=== PATIENT | male | born 1955 | race Caucasian/White ===

== ENCOUNTER 2020-09-16 10:43 | Inpatient (IN) | payer BC ==
[2020-09-16 11:19] LABS: VENOUS BASE EXCESS 1.7 mmol/L (-2-2); VENOUS O2 SATURATION 51.4 % (70-80); VENOUS PCO2 35.4 mmHg (38-52); VENOUS PH 7.466 (7.310-7.410)
[2020-09-16] MEDS ORDERED: DEXAMETHASONE SOD PHOSPHATE 10 MG/1 ML VIAL IVPUSH ONE (11:25)
[2020-09-16 11:40] VITALS: BMI 34.8
[2020-09-16 11:45] LABS: HEMATOCRIT 45.3 % (35.4-49); HEMOGLOBIN 15.3 GM/dL (11.7-16.9); LYMPH % 5.9 % (8-40); MCH 30.2 pg (25.7-33.7); MCHC 33.7 g/dl (32.0-35.9); MEAN CELL VOLUME 89.8 fl (80-96); MONO % 4.3 % (3.8-10.2); NEUT % 89.8 % (42.8-82.8); PLATELET COUNT 187 K/MM3 (134-434); RBC 5.04 M/mm3 (4.00-5.60); RDW 13.5 % (11.9-15.9); WHITE BLOOD COUNT 11.3 K/mm3 (4.0-10.0)
[2020-09-16 11:52] LABS: INR 1.31 (0.83-1.09)
[2020-09-16 12:00] LABS: ACTIVATED PTT 31.9 SECONDS (25.2-36.5)
[2020-09-16 12:02] LABS: CHLORIDE 101 mmol/L (98-107); POTASSIUM 3.3 mmol/L (3.5-5.1); SODIUM 135 mmol/L (136-145)
[2020-09-16 12:04] LABS: BLOOD UREA NITROGEN 19.8 mg/dL (7-18)
[2020-09-16 12:05] LABS: ALBUMIN 3.2 g/dl (3.4-5.0); ANION GAP 5 MMOL/L (8-16); CALCIUM 8.2 mg/dL (8.5-10.1); CO2 29 mmol/L (21-32); GLUCOSE,RANDOM 178 mg/dL (74-106)
[2020-09-16 12:08] LABS: BILIRUBIN,DIRECT 0.3 mg/dL (0.0-0.2); CREATININE 1.1 mg/dL (0.55-1.3); SGPT/ALT 46 U/L (13-61)
[2020-09-16 12:09] LABS: SGOT/AST 56 U/L (15-37)
[2020-09-16 12:10] LABS: BILIRUBIN,TOTAL 0.8 mg/dL (0.2-1)
[2020-09-16 12:11] LABS: ALK PHOS 56 U/L (45-117); LDH 551 U/L (87-246)
[2020-09-16] MEDS ORDERED: SODIUM CHLORIDE 0.9% 500 ML INFUS.BAG IV ONE (12:21)
[2020-09-16] MEDS ORDERED: guaiFENesin/D-M SUGAR-FREE/ACLHOL-FREE 118 ML BOTTLE PO ONE (12:32)
[2020-09-16 12:49] LABS: N-TERMINAL BNP 1102.7 pg/ml (5-125)
[2020-09-16] MEDS ORDERED: KCL 10 MEQ IVPB 30 MEQ/300 ML INFUS.BAG IVPB ONE (13:13)
[2020-09-16] MEDS: KCL 10 MEQ IVPB 10 MEQ/100 ML INFUS.BAG IVPB SCH ×3 (13:30→16:30)
[2020-09-16] MEDS ORDERED: APIXABAN 2.5 MG TABLET ONE (15:00)
[2020-09-16] MEDS ORDERED: TICAGRELOR 60 MG TABLET PO ONE (15:00)
[2020-09-16] MEDS ORDERED: TICAGRELOR 60 MG TABLET PO SCH (15:00)
[2020-09-16] MEDS ORDERED: CEFTRIAXONE 1 GM in DEXTROSE 5%-WATER - 50 ML IVPB ONE (15:14)
[2020-09-16] MEDS ORDERED: ALBUTEROL SO4 HFA INHALER IH PRN (15:16)
[2020-09-16] MEDS: APIXABAN 2.5 MG TABLET PO SCH ×2 (15:30→22:20)
[2020-09-16] MEDS ORDERED: REMDESIVIR 200 MG in SODIUM CHLORIDE 210 ML IVPB ONE (15:57)
[2020-09-16] MEDS ORDERED: CEFTRIAXONE 1 GM/50 ML BAG ONE (17:11)
[2020-09-16 17:31] LABS: EPI CELLS 4 /uL (0-25.1); HYALINE CASTS 0 /uL (0-3.1); PH,URINE 6.5 (5.0-8.0); URINE APPEARANCE CLEAR; URINE BACTERIA 119 /uL (0-1359); URINE BILIRUBIN NEGATIVE (NEGATIVE); URINE COLOR YELLOW; URINE GLUCOSE (UA) TRACE (NEGATIVE); URINE KETONE NEGATIVE (NEGATIVE); URINE LEUK ESTERASE NEGATIVE (NEGATIVE); URINE NITRITE NEGATIVE (NEGATIVE); URINE PROTEIN 1+ (NEGATIVE); URINE RBC 17 /uL (0-23.9); URINE UROBILINOGEN 0.2 mg/dL (0.2-1.0); URINE WBC 5 /uL (0-25.8)
[2020-09-16] MEDS: guaiFENesin/D-M SUGAR-FREE/ACLHOL-FREE 118 ML BOTTLE PO PRN (22:13)
[2020-09-16] MEDS: METOPROLOL TARTRATE 50 MG TABLET (FP) PO SCH (22:20)
[2020-09-16] MEDS: ATORVASTATIN CA 40 MG TABLET (FP) PO SCH (22:20)
[2020-09-16] MEDS: TICAGRELOR 60 MG TABLET PO SCH (22:20)
[2020-09-16] MEDS: DOXYCYCLINE INJECTION 100 MG in DEXTROSE 5%-WATER - 100 ML IVPB SCH (22:36)
[2020-09-16] MEDS: SACUBITRIL/VALSARTAN 49 MG-51 MG TABLET PO SCH (22:45)
[2020-09-17] MEDS: SACUBITRIL/VALSARTAN 49 MG-51 MG TABLET PO SCH ×3 (01:08→21:27)
[2020-09-17] MEDS ORDERED: SODIUM CHLORIDE 1,000 ML IV SCH (05:00)
[2020-09-17] MEDS: guaiFENesin/D-M SUGAR-FREE/ACLHOL-FREE 118 ML BOTTLE PO PRN ×2 (07:13→21:26)
[2020-09-17 08:20] LABS: POTASSIUM 3.2 mmol/L (3.5-5.1)
[2020-09-17 08:27] LABS: CALCIUM 7.1 mg/dL (8.5-10.1)
[2020-09-17 08:28] LABS: ALBUMIN 2.8 g/dl (3.4-5.0); BLOOD UREA NITROGEN 17.4 mg/dL (7-18); MAGNESIUM 1.8 mg/dL (1.8-2.4)
[2020-09-17 08:31] LABS: CREATININE 0.8 mg/dL (0.55-1.3)
[2020-09-17 08:32] LABS: BILIRUBIN,TOTAL 0.8 mg/dL (0.2-1); TOT PROT 6.4 g/dl (6.4-8.2)
[2020-09-17 08:50] LABS: BASO % 0.1 % (0-2.0); HEMATOCRIT 41.9 % (35.4-49); HEMOGLOBIN 14.4 GM/dL (11.7-16.9); LYMPH % 7.5 % (8-40); MCH 30.2 pg (25.7-33.7); MCHC 34.4 g/dl (32.0-35.9); MEAN CELL VOLUME 87.8 fl (80-96); MEAN PLT VOLUME 9.5 fl (7.5-11.1); MONO % 4.8 % (3.8-10.2); NEUT % 87.6 % (42.8-82.8); PLATELET COUNT 195 K/MM3 (134-434); RBC 4.77 M/mm3 (4.00-5.60); RDW 13.2 % (11.9-15.9)
[2020-09-17] MEDS ORDERED: cefTRIAXone SODIUM 1 GM VIAL ONE (09:08)
[2020-09-17] MEDS ORDERED: DEXTROSE 5%-WATER - 50 ML IVPB ONE (09:09)
[2020-09-17] MEDS: TICAGRELOR 60 MG TABLET PO SCH ×2 (09:17→21:23)
[2020-09-17] MEDS: APIXABAN 2.5 MG TABLET PO SCH ×2 (09:18→21:23)
[2020-09-17] MEDS: FAMOTIDINE 20 MG TABLET PO SCH (09:18)
[2020-09-17] MEDS: METOPROLOL TARTRATE 50 MG TABLET (FP) PO SCH ×2 (09:19→21:24)
[2020-09-17] MEDS: DEXAMETHASONE SOD PHOSPHATE 4 MG/1 ML VIAL IVPUSH SCH (09:19)
[2020-09-17] MEDS: DOXYCYCLINE INJECTION 100 MG in DEXTROSE 5%-WATER - 100 ML IVPB SCH ×2 (09:19→21:24)
[2020-09-17] MEDS: CEFTRIAXONE 1 GM in DEXTROSE 5%-WATER - 50 ML IVPB SCH (09:20)
[2020-09-17] MEDS ORDERED: DEXAMETHASONE 4 MG TABLET (FP) PO SCH (10:00)
[2020-09-17] MEDS: BENZOCAINE/MENTH/CETYLPYRD CL 1 EACH LOZENGE MM SCH ×2 (13:43→21:59)
[2020-09-17] MEDS ORDERED: POTASSIUM CHLORIDE TABS 20 MEQ TABLET.ER (FP) PO ONE (16:03)
[2020-09-17] MEDS: REMDESIVIR 100 MG in SODIUM CHLORIDE 230 ML IVPB SCH (16:34)
[2020-09-17] MEDS: INSULIN SLIDING SCALE (NOVOLOG) 1 VIAL SQ SCH ×2 (16:44→21:54)
[2020-09-17] MEDS ORDERED: PT OWN MED DRAWER 7, Y5N ONE (20:45)
[2020-09-17] MEDS: ATORVASTATIN CA 40 MG TABLET (FP) PO SCH (21:23)
[2020-09-18] MEDS ORDERED: SODIUM CHLORIDE 0.9% 500 ML INFUS.BAG IV ONE (00:39)
[2020-09-18] MEDS ORDERED: LORazepam 2 MG/ML SDV VIAL IVPUSH ONE (00:45)
[2020-09-18] MEDS ORDERED: SODIUM CHLORIDE NASAL SPRAY 44 ML BOTTLE NS PRN (01:22)
[2020-09-18] MEDS: INSULIN SLIDING SCALE (NOVOLOG) 1 VIAL SQ SCH ×4 (06:52→21:44)
[2020-09-18 08:32] LABS: BASO % 0.1 % (0-2.0); HEMATOCRIT 44.4 % (35.4-49); HEMOGLOBIN 14.8 GM/dL (11.7-16.9); LYMPH % 13.1 % (8-40); MCH 29.9 pg (25.7-33.7); MCHC 33.4 g/dl (32.0-35.9); MEAN CELL VOLUME 89.7 fl (80-96); NEUT % 82.8 % (42.8-82.8); PLATELET COUNT 237 K/MM3 (134-434); RBC 4.96 M/mm3 (4.00-5.60); RDW 13.3 % (11.9-15.9); WHITE BLOOD COUNT 4.4 K/mm3 (4.0-10.0)
[2020-09-18 08:49] LABS: POTASSIUM 3.2 mmol/L (3.5-5.1)
[2020-09-18 08:52] LABS: ALBUMIN 2.7 g/dl (3.4-5.0); BLOOD UREA NITROGEN 17.7 mg/dL (7-18)
[2020-09-18 08:55] LABS: CREATININE 0.8 mg/dL (0.55-1.3)
[2020-09-18 08:56] LABS: BILIRUBIN,TOTAL 1.2 mg/dL (0.2-1); TOT PROT 6.3 g/dl (6.4-8.2)
[2020-09-18] MEDS ORDERED: PT OWN MED DRAWER 7, Y5N ONE ×2 (09:20→21:41)
[2020-09-18] MEDS ORDERED: cefTRIAXone SODIUM 1 GM VIAL ONE (09:21)
[2020-09-18] MEDS ORDERED: DEXTROSE 5%-WATER - 50 ML IVPB ONE (09:21)
[2020-09-18] MEDS ORDERED: METOPROLOL TARTRATE 5 MG/5 ML VIAL IVPUSH PRN ×2 (09:25→09:31)
[2020-09-18] MEDS: APIXABAN 2.5 MG TABLET PO SCH (09:39)
[2020-09-18] MEDS: METOPROLOL TARTRATE 50 MG TABLET (FP) PO SCH (09:41)
[2020-09-18] MEDS: FAMOTIDINE 20 MG TABLET PO SCH (09:41)
[2020-09-18] MEDS: KCL 10 MEQ IVPB 10 MEQ/100 ML INFUS.BAG IVPB SCH ×2 (09:42→11:00)
[2020-09-18] MEDS: CEFTRIAXONE 1 GM in DEXTROSE 5%-WATER - 50 ML IVPB SCH (09:42)
[2020-09-18] MEDS: DOXYCYCLINE INJECTION 100 MG in DEXTROSE 5%-WATER - 100 ML IVPB SCH ×3 (09:42→23:40)
[2020-09-18] MEDS: DEXAMETHASONE SOD PHOSPHATE 4 MG/1 ML VIAL IVPUSH SCH (09:43)
[2020-09-18] MEDS: BENZOCAINE/MENTH/CETYLPYRD CL 1 EACH LOZENGE MM SCH ×2 (09:43→21:43)
[2020-09-18] MEDS: TICAGRELOR 60 MG TABLET PO SCH ×2 (09:44→21:43)
[2020-09-18] MEDS: SACUBITRIL/VALSARTAN 49 MG-51 MG TABLET PO SCH ×2 (09:44→21:43)
[2020-09-18] MEDS ORDERED: INSULIN (NOVOLOG) ASPART 100 UNITS/ML 10ML VIAL ONE (11:11)
[2020-09-18] MEDS ORDERED: METOPROLOL TARTRATE 50 MG TABLET (FP) PO SCH (12:18)
[2020-09-18] MEDS ORDERED: LORazepam 0.5 MG TABLET PO PRN (12:55)
[2020-09-18] MEDS ORDERED: MELATONIN 5 MG TABLETS PO PRN (12:56)
[2020-09-18] MEDS: REMDESIVIR 100 MG in SODIUM CHLORIDE 230 ML IVPB SCH (17:14)
[2020-09-18] MEDS: APIXABAN 5 MG TABLET PO SCH (21:44)
[2020-09-18] MEDS: guaiFENesin/D-M SUGAR-FREE/ACLHOL-FREE 118 ML BOTTLE PO PRN (21:47)
[2020-09-18] MEDS: ATORVASTATIN CA 40 MG TABLET (FP) PO SCH (21:48)
[2020-09-18] MEDS ORDERED: CHLORHEXIDINE GLUCONATE 4% CLEANSER FOR DECOLONIZATION TP SCH ×2 (22:00)
[2020-09-18] MEDS ORDERED: MUPIROCIN 2% TOPICAL OINTMENT FOR DECOLONIZATION NS SCH ×2 (22:00)
[2020-09-18] MEDS ORDERED: VANCOMYCIN 1 GRAM (PRE-DOCKED) 1,000 MG/250 ML BAG IVPB ONE (23:20)
[2020-09-19] MEDS ORDERED: PT OWN MED DRAWER 7, Y5N ONE ×3 (01:29→23:45)
[2020-09-19] MEDS ORDERED: VANCOMYCIN 1 GRAM (PRE-DOCKED) 1,000 MG/250 ML BAG IVPB ONE (01:45)
[2020-09-19] MEDS ORDERED: MORPHINE SULFATE 2 MG/ML VIAL IVPUSH PRN (06:36)
[2020-09-19] MEDS: INSULIN SLIDING SCALE (NOVOLOG) 1 VIAL SQ SCH ×3 (07:42→17:19)
[2020-09-19 07:56] LABS: BASO % 0.1 % (0-2.0); EOS % 0.2 % (0-4.5); HEMATOCRIT 42.3 % (35.4-49); HEMOGLOBIN 14.6 GM/dL (11.7-16.9); LYMPH % 11.1 % (8-40); MCH 30.6 pg (25.7-33.7); MCHC 34.5 g/dl (32.0-35.9); MEAN CELL VOLUME 88.7 fl (80-96); MONO % 3.5 % (3.8-10.2); NEUT % 85.1 % (42.8-82.8); PLATELET COUNT 257 K/MM3 (134-434); RBC 4.77 M/mm3 (4.00-5.60); RDW 13.1 % (11.9-15.9); WHITE BLOOD COUNT 3.5 K/mm3 (4.0-10.0)
[2020-09-19 08:07] LABS: POTASSIUM 3.3 mmol/L (3.5-5.1)
[2020-09-19 08:15] LABS: ALBUMIN 2.5 g/dl (3.4-5.0)
[2020-09-19 08:16] LABS: BLOOD UREA NITROGEN 21.4 mg/dL (7-18)
[2020-09-19 08:19] LABS: CREATININE 0.8 mg/dL (0.55-1.3)
[2020-09-19 08:20] LABS: TOT PROT 6.2 g/dl (6.4-8.2)
[2020-09-19] MEDS ORDERED: POTASSIUM CHLORIDE TABS 20 MEQ TABLET.ER (FP) PO ONE (08:30)
[2020-09-19] MEDS ORDERED: cefTRIAXone SODIUM 1 GM VIAL ONE (09:46)
[2020-09-19] MEDS ORDERED: DEXTROSE 5%-WATER - 50 ML IVPB ONE (09:46)
[2020-09-19] MEDS: CEFTRIAXONE 1 GM in DEXTROSE 5%-WATER - 50 ML IVPB SCH (09:53)
[2020-09-19] MEDS: APIXABAN 5 MG TABLET PO SCH ×2 (09:54→23:47)
[2020-09-19] MEDS: SACUBITRIL/VALSARTAN 49 MG-51 MG TABLET PO SCH ×2 (09:54→23:46)
[2020-09-19] MEDS: DEXAMETHASONE SOD PHOSPHATE 4 MG/1 ML VIAL IVPUSH SCH (09:54)
[2020-09-19] MEDS: BENZOCAINE/MENTH/CETYLPYRD CL 1 EACH LOZENGE MM SCH ×2 (09:54→23:47)
[2020-09-19] MEDS: TICAGRELOR 60 MG TABLET PO SCH ×2 (09:54→23:47)
[2020-09-19] MEDS: LORazepam 0.5 MG TABLET PO PRN ×3 (09:55→23:47)
[2020-09-19] MEDS: FAMOTIDINE 20 MG TABLET PO SCH (09:55)
[2020-09-19] MEDS: DOXYCYCLINE INJECTION 100 MG in DEXTROSE 5%-WATER - 100 ML IVPB SCH (12:29)
[2020-09-19] MEDS: REMDESIVIR 100 MG in SODIUM CHLORIDE 230 ML IVPB SCH (17:19)
[2020-09-19] MEDS: ATORVASTATIN CA 40 MG TABLET (FP) PO SCH (23:47)
[2020-09-20] MEDS: INSULIN SLIDING SCALE (NOVOLOG) 1 VIAL SQ SCH ×5 (00:14→23:22)
[2020-09-20] MEDS: DOXYCYCLINE INJECTION 100 MG in DEXTROSE 5%-WATER - 100 ML IVPB SCH ×3 (00:18→21:00)
[2020-09-20 08:24] LABS: BASO % 0.1 % (0-2.0); EOS % 0.1 % (0-4.5); HEMATOCRIT 41.5 % (35.4-49); HEMOGLOBIN 14.2 GM/dL (11.7-16.9); LYMPH % 9.2 % (8-40); MCH 30.6 pg (25.7-33.7); MCHC 34.2 g/dl (32.0-35.9); MEAN CELL VOLUME 89.6 fl (80-96); MEAN PLT VOLUME 9.5 fl (7.5-11.1); MONO % 3.4 % (3.8-10.2); NEUT % 87.2 % (42.8-82.8); PLATELET COUNT 270 K/MM3 (134-434); RBC 4.63 M/mm3 (4.00-5.60); RDW 13.3 % (11.9-15.9); WHITE BLOOD COUNT 4.6 K/mm3 (4.0-10.0)
[2020-09-20 08:38] LABS: POTASSIUM 3.5 mmol/L (3.5-5.1)
[2020-09-20 08:45] LABS: CALCIUM 8.3 mg/dL (8.5-10.1)
[2020-09-20 08:46] LABS: ALBUMIN 2.3 g/dl (3.4-5.0); BLOOD UREA NITROGEN 28.3 mg/dL (7-18)
[2020-09-20 08:49] LABS: CREATININE 0.8 mg/dL (0.55-1.3)
[2020-09-20 08:50] LABS: BILIRUBIN,TOTAL 1.6 mg/dL (0.2-1); TOT PROT 6.2 g/dl (6.4-8.2)
[2020-09-20] MEDS ORDERED: cefTRIAXone SODIUM 1 GM VIAL ONE (10:08)
[2020-09-20] MEDS ORDERED: PT OWN MED DRAWER 7, Y5N ONE ×2 (10:08→20:49)
[2020-09-20] MEDS ORDERED: DEXTROSE 5%-WATER - 50 ML IVPB ONE (10:09)
[2020-09-20] MEDS: TICAGRELOR 60 MG TABLET PO SCH ×2 (10:55→21:00)
[2020-09-20] MEDS: BENZOCAINE/MENTH/CETYLPYRD CL 1 EACH LOZENGE MM SCH ×2 (10:56→21:17)
[2020-09-20] MEDS: DEXAMETHASONE SOD PHOSPHATE 4 MG/1 ML VIAL IVPUSH SCH (10:58)
[2020-09-20] MEDS: APIXABAN 5 MG TABLET PO SCH ×2 (10:58→21:00)
[2020-09-20] MEDS: SACUBITRIL/VALSARTAN 49 MG-51 MG TABLET PO SCH ×2 (10:58→21:01)
[2020-09-20] MEDS: CEFTRIAXONE 1 GM in DEXTROSE 5%-WATER - 50 ML IVPB SCH (10:59)
[2020-09-20] MEDS: FAMOTIDINE 20 MG TABLET PO SCH (10:59)
[2020-09-20] MEDS ORDERED: MORPHINE SULFATE 2 MG/ML VIAL IVPUSH ONE (12:36)
[2020-09-20] MEDS ORDERED: MORPHINE SULFATE 2 MG/ML VIAL ONE (13:38)
[2020-09-20] MEDS: METOPROLOL TARTRATE 5 MG/5 ML VIAL IVPUSH PRN (13:59)
[2020-09-20] MEDS ORDERED: ACETAMINOPHEN 1000 MG/100 ML VIAL (NON FORMULARY) IVPB ONE (13:59)
[2020-09-20] MEDS ORDERED: ACETAMINOPHEN 325 MG TABLET (FP) ONE (14:00)
[2020-09-20] MEDS ORDERED: ACETAMINOPHEN INJECTION 100 ML IVPB ONE (14:02)
[2020-09-20 14:24] LABS: ARTERIAL BLD GAS O2 SATURATION 95.9 mmHg (95-98); ARTERIAL BLOOD GAS BASE EXCESS 2.8 mmol/L (-2-2); ARTERIAL BLOOD GAS PO2 73.4 mmHg (80-100); ARTERIAL BLOOD GAS pH 7.493 (7.350-7.450)
[2020-09-20 14:29] LABS: ALLENS TEST POSITIVE; VENT MODE S/T
[2020-09-20 14:30] LABS: VENT RATE 14
[2020-09-20] MEDS: REMDESIVIR 100 MG in SODIUM CHLORIDE 230 ML IVPB SCH (17:25)
[2020-09-20] MEDS ORDERED: guaiFENesin/D-M SUGAR-FREE/ACLHOL-FREE 118 ML BOTTLE PO PRN (19:03)
[2020-09-20] MEDS ORDERED: ALBUTEROL SO4 HFA INHALER IH PRN (19:03)
[2020-09-20] MEDS ORDERED: SODIUM CHLORIDE NASAL SPRAY 44 ML BOTTLE NS PRN (19:03)
[2020-09-20] MEDS ORDERED: LORazepam 2 MG/ML SDV VIAL IVPUSH PRN (20:23)
[2020-09-20] MEDS ORDERED: morphine CARPU-JECT 2 MG/1 ML DISP.SYRIN IVPUSH PRN (20:24)
[2020-09-20] MEDS: MELATONIN 5 MG TABLETS PO PRN (20:58)
[2020-09-20] MEDS: MORPHINE SULFATE 2 MG/ML VIAL IVPUSH PRN (20:58)
[2020-09-20] MEDS: ATORVASTATIN CA 40 MG TABLET (FP) PO SCH (21:01)
[2020-09-21] MEDS: LACTATED RINGERS SOLUTION 1,000 ML/1,000 ML INFUS.BAG IV SCH (04:45)
[2020-09-21 07:17] LABS: BASO % 0.1 % (0-2.0); EOS % 0.1 % (0-4.5); HEMATOCRIT 40.4 % (35.4-49); HEMOGLOBIN 14.1 GM/dL (11.7-16.9); LYMPH % 8.3 % (8-40); MEAN CELL VOLUME 88.8 fl (80-96); MEAN PLT VOLUME 9.3 fl (7.5-11.1); MONO % 3.3 % (3.8-10.2); NEUT % 88.2 % (42.8-82.8); PLATELET COUNT 286 K/MM3 (134-434); RBC 4.55 M/mm3 (4.00-5.60); RDW 13.5 % (11.9-15.9); WHITE BLOOD COUNT 4.2 K/mm3 (4.0-10.0)
[2020-09-21 07:22] LABS: POTASSIUM 3.5 mmol/L (3.5-5.1)
[2020-09-21] MEDS: INSULIN SLIDING SCALE (NOVOLOG) 1 VIAL SQ SCH ×4 (07:28→22:47)
[2020-09-21 07:29] LABS: ALBUMIN 2.2 g/dl (3.4-5.0); BLOOD UREA NITROGEN 33.4 mg/dL (7-18)
[2020-09-21 07:33] LABS: CREATININE 0.8 mg/dL (0.55-1.3)
[2020-09-21 07:34] LABS: BILIRUBIN,TOTAL 1.4 mg/dL (0.2-1); TOT PROT 6.2 g/dl (6.4-8.2)
[2020-09-21 07:41] LABS: LDH 852 U/L (87-246)
[2020-09-21 07:51] LABS: MAGNESIUM 2.5 mg/dL (1.8-2.4)
[2020-09-21] MEDS ORDERED: DEXTROSE 5%-WATER - 50 ML IVPB ONE (09:24)
[2020-09-21] MEDS ORDERED: cefTRIAXone SODIUM 1 GM VIAL ONE (09:24)
[2020-09-21] MEDS ORDERED: PT OWN MED DRAWER 7, Y5N ONE ×2 (09:24→21:55)
[2020-09-21] MEDS: DEXAMETHASONE SOD PHOSPHATE 4 MG/1 ML VIAL IVPUSH SCH (09:30)
[2020-09-21] MEDS: CEFTRIAXONE 1 GM in DEXTROSE 5%-WATER - 50 ML IVPB SCH (09:31)
[2020-09-21] MEDS: METOPROLOL TARTRATE 5 MG/5 ML VIAL IVPUSH PRN ×3 (10:13→21:00)
[2020-09-21] MEDS: APIXABAN 5 MG TABLET PO SCH ×2 (10:28→21:45)
[2020-09-21] MEDS: FAMOTIDINE 20 MG TABLET PO SCH (10:28)
[2020-09-21] MEDS: SACUBITRIL/VALSARTAN 49 MG-51 MG TABLET PO SCH ×2 (12:20→23:00)
[2020-09-21] MEDS: TICAGRELOR 60 MG TABLET PO SCH ×2 (12:20→23:00)
[2020-09-21] MEDS: BENZOCAINE/MENTH/CETYLPYRD CL 1 EACH LOZENGE MM SCH ×2 (13:01→21:46)
[2020-09-21] MEDS: DOXYCYCLINE INJECTION 100 MG in DEXTROSE 5%-WATER - 100 ML IVPB SCH ×2 (13:02→21:58)
[2020-09-21] MEDS: MORPHINE SULFATE 2 MG/ML VIAL IVPUSH PRN (15:06)
[2020-09-21] MEDS: POLYETHYLENE GLYCOL 3350 119 GM BTL PO SCH ×2 (15:08→15:10)
[2020-09-21] MEDS ORDERED: DEXAMETHASONE SOD PHOSPHATE 10 MG/1 ML VIAL IVPUSH ONE (15:20)
[2020-09-21] MEDS: MELATONIN 5 MG TABLETS PO PRN (21:44)
[2020-09-21] MEDS: ATORVASTATIN CA 40 MG TABLET (FP) PO SCH (21:45)
[2020-09-22] MEDS: METOPROLOL TARTRATE 5 MG/5 ML VIAL IVPUSH PRN ×3 (02:50→15:23)
[2020-09-22] MEDS: LACTATED RINGERS SOLUTION 1,000 ML/1,000 ML INFUS.BAG IV SCH ×2 (03:22→07:00)
[2020-09-22] MEDS: INSULIN SLIDING SCALE (NOVOLOG) 1 VIAL SQ SCH ×4 (06:11→23:25)
[2020-09-22] MEDS: MORPHINE SULFATE 2 MG/ML VIAL IVPUSH PRN (06:51)
[2020-09-22 07:32] LABS: BASO % 0.1 % (0-2.0); EOS % 0.1 % (0-4.5); HEMATOCRIT 42.8 % (35.4-49); HEMOGLOBIN 14.9 GM/dL (11.7-16.9); LYMPH % 6.4 % (8-40); MCH 30.7 pg (25.7-33.7); MCHC 34.8 g/dl (32.0-35.9); MEAN CELL VOLUME 88.3 fl (80-96); MEAN PLT VOLUME 9.2 fl (7.5-11.1); MONO % 3.9 % (3.8-10.2); NEUT % 89.5 % (42.8-82.8); PLATELET COUNT 272 K/MM3 (134-434); RBC 4.84 M/mm3 (4.00-5.60); RDW 13.6 % (11.9-15.9); WHITE BLOOD COUNT 4.3 K/mm3 (4.0-10.0)
[2020-09-22 07:38] LABS: CHLORIDE 109 mmol/L (98-107); POTASSIUM 3.6 mmol/L (3.5-5.1); SODIUM 145 mmol/L (136-145)
[2020-09-22 07:49] LABS: ALBUMIN 2.2 g/dl (3.4-5.0); CALCIUM 8.1 mg/dL (8.5-10.1)
[2020-09-22 07:50] LABS: ANION GAP 9 MMOL/L (8-16); BLOOD UREA NITROGEN 34.6 mg/dL (7-18); CO2 27 mmol/L (21-32); GLUCOSE,RANDOM 207 mg/dL (74-106); LDH > 1000 U/L (87-246); MAGNESIUM 2.3 mg/dL (1.8-2.4)
[2020-09-22 07:52] LABS: SGOT/AST 64 U/L (15-37); SGPT/ALT 60 U/L (13-61)
[2020-09-22 07:53] LABS: CREATININE 0.9 mg/dL (0.55-1.3)
[2020-09-22 07:54] LABS: BILIRUBIN,TOTAL 1.5 mg/dL (0.2-1); TOT PROT 6.3 g/dl (6.4-8.2)
[2020-09-22 07:55] LABS: ALK PHOS 96 U/L (45-117)
[2020-09-22] MEDS ORDERED: PT OWN MED DRAWER 7, Y5N ONE ×2 (09:46→13:04)
[2020-09-22] MEDS ORDERED: DEXTROSE 5%-WATER - 50 ML IVPB ONE (09:47)
[2020-09-22] MEDS ORDERED: cefTRIAXone SODIUM 1 GM VIAL ONE (09:47)
[2020-09-22] MEDS: CEFTRIAXONE 1 GM in DEXTROSE 5%-WATER - 50 ML IVPB SCH (09:49)
[2020-09-22] MEDS: DOXYCYCLINE INJECTION 100 MG in DEXTROSE 5%-WATER - 100 ML IVPB SCH ×2 (09:52→22:53)
[2020-09-22] MEDS: DEXAMETHASONE SOD PHOSPHATE 4 MG/1 ML VIAL IVPUSH SCH (09:53)
[2020-09-22] MEDS: APIXABAN 5 MG TABLET PO SCH ×2 (09:59→22:51)
[2020-09-22] MEDS: BENZOCAINE/MENTH/CETYLPYRD CL 1 EACH LOZENGE MM SCH ×2 (09:59→22:52)
[2020-09-22] MEDS: FAMOTIDINE 20 MG TABLET PO SCH (09:59)
[2020-09-22] MEDS: SACUBITRIL/VALSARTAN 49 MG-51 MG TABLET PO SCH ×2 (10:00→22:50)
[2020-09-22] MEDS: TICAGRELOR 60 MG TABLET PO SCH ×2 (10:00→22:50)
[2020-09-22] MEDS ORDERED: LACTATED RINGERS SOLUTION 1,000 ML/1,000 ML INFUS.BAG IV SCH (11:28)
[2020-09-22] MEDS ORDERED: MORPHINE SULFATE 2 MG/ML VIAL IVPUSH PRN (11:29)
[2020-09-22] MEDS: POLYETHYLENE GLYCOL 3350 119 GM BTL PO SCH (17:39)
[2020-09-22] MEDS ORDERED: SENNOSIDES 8.6MG TABLET (FP) PO SCH (22:00)
[2020-09-22] MEDS: ATORVASTATIN CA 40 MG TABLET (FP) PO SCH (22:51)
[2020-09-22] MEDS: MELATONIN 5 MG TABLETS PO PRN (22:51)
[2020-09-23] MEDS: METOPROLOL TARTRATE 5 MG/5 ML VIAL IVPUSH PRN ×3 (03:27→20:55)
[2020-09-23] MEDS ORDERED: MORPHINE SULFATE 2 MG/ML VIAL IVPUSH PRN ×2 (05:05→11:35)
[2020-09-23] MEDS ORDERED: ALBUTEROL SO4 HFA INHALER IH PRN (05:05)
[2020-09-23] MEDS ORDERED: guaiFENesin/D-M SUGAR-FREE/ACLHOL-FREE 118 ML BOTTLE PO PRN (05:05)
[2020-09-23] MEDS ORDERED: SODIUM CHLORIDE NASAL SPRAY 44 ML BOTTLE NS PRN (05:05)
[2020-09-23] MEDS ORDERED: MELATONIN 5 MG TABLETS PO PRN (05:05)
[2020-09-23] MEDS ORDERED: LORazepam 2 MG/ML SDV VIAL IVPUSH ONE ×2 (05:36→08:30)
[2020-09-23] MEDS: LACTATED RINGERS SOLUTION 1,000 ML/1,000 ML INFUS.BAG IV SCH (06:58)
[2020-09-23] MEDS: INSULIN SLIDING SCALE (NOVOLOG) 1 VIAL SQ SCH ×4 (06:58→23:25)
[2020-09-23 07:24] LABS: HEMATOCRIT 43.3 % (35.4-49); HEMOGLOBIN 14.6 GM/dL (11.7-16.9); MCH 30.6 pg (25.7-33.7); MCHC 33.8 g/dl (32.0-35.9); MEAN CELL VOLUME 90.4 fl (80-96); MEAN PLT VOLUME 10.1 fl (7.5-11.1); PLATELET COUNT 217 K/MM3 (134-434); RBC 4.79 M/mm3 (4.00-5.60); RDW 13.5 % (11.9-15.9); WHITE BLOOD COUNT 6.6 K/mm3 (4.0-10.0)
[2020-09-23 07:32] LABS: CHLORIDE 114 mmol/L (98-107); POTASSIUM 3.7 mmol/L (3.5-5.1); SODIUM 149 mmol/L (136-145)
[2020-09-23 07:34] LABS: CALCIUM 8.3 mg/dL (8.5-10.1)
[2020-09-23 07:35] LABS: ALBUMIN 2.1 g/dl (3.4-5.0); ANION GAP 10 MMOL/L (8-16); CO2 25 mmol/L (21-32); GLUCOSE,RANDOM 194 mg/dL (74-106); MAGNESIUM 2.2 mg/dL (1.8-2.4)
[2020-09-23 07:38] LABS: CREATININE 0.9 mg/dL (0.55-1.3); SGOT/AST 58 U/L (15-37); SGPT/ALT 56 U/L (13-61)
[2020-09-23 07:39] LABS: BILIRUBIN,TOTAL 1.7 mg/dL (0.2-1); TOT PROT 6.2 g/dl (6.4-8.2)
[2020-09-23 07:41] LABS: ALK PHOS 112 U/L (45-117)
[2020-09-23 08:02] LABS: LDH 1026 U/L (87-246)
[2020-09-23] MEDS ORDERED: MORPHINE SULFATE 2 MG/ML VIAL IVPUSH ONE (08:17)
[2020-09-23 08:51] LABS: ANISOCYTOSIS 1+; MACROCYTOSIS 0; PLATELET ESTIMATE NORMAL
[2020-09-23] MEDS: DEXAMETHASONE SOD PHOSPHATE 4 MG/1 ML VIAL IVPUSH SCH (09:59)
[2020-09-23] MEDS: BENZOCAINE/MENTH/CETYLPYRD CL 1 EACH LOZENGE MM SCH ×2 (10:00→23:25)
[2020-09-23] MEDS ORDERED: FAMOTIDINE 20 MG TABLET PO SCH (10:00)
[2020-09-23] MEDS ORDERED: POLYETHYLENE GLYCOL 3350 119 GM BTL PO SCH (10:00)
[2020-09-23] MEDS ORDERED: SACUBITRIL/VALSARTAN 49 MG-51 MG TABLET PO SCH (10:00)
[2020-09-23] MEDS ORDERED: APIXABAN 5 MG TABLET PO SCH (10:00)
[2020-09-23] MEDS ORDERED: TICAGRELOR 60 MG TABLET PO SCH (10:00)
[2020-09-23] MEDS ORDERED: metoPROLOL SUCCINATE 25 MG TAB.SR.24H (FP) PO SCH (10:00)
[2020-09-23] MEDS: CEFTRIAXONE 1 GM in DEXTROSE 5%-WATER - 50 ML IVPB SCH (10:02)
[2020-09-23] MEDS: DOXYCYCLINE INJECTION 100 MG in DEXTROSE 5%-WATER 100 ML IVPB SCH ×2 (10:03→22:26)
[2020-09-23] MEDS ORDERED: DEXTROSE 5%-WATER - 50 ML IVPB ONE (10:22)
[2020-09-23] MEDS ORDERED: cefTRIAXone SODIUM 1 GM VIAL ONE (10:22)
[2020-09-23] MEDS ORDERED: dilTIAZem HCL 50 MG/10 ML - 10 ML VIAL IVPUSH ONE (11:29)
[2020-09-23] MEDS: LORazepam 2 MG/ML SDV VIAL IVPUSH PRN ×2 (13:59→22:26)
[2020-09-23] MEDS: MORPHINE SULFATE 2 MG/ML VIAL IVPUSH PRN ×2 (13:59→20:55)
[2020-09-23] MEDS: dilTIAZem HCL 50 MG/10 ML - 10 ML VIAL IVPUSH PRN ×2 (17:27→22:27)
[2020-09-23] MEDS ORDERED: ACETAMINOPHEN 1000 MG/100 ML VIAL (NON FORMULARY) IVPB ONE (21:05)
[2020-09-23] MEDS ORDERED: SENNOSIDES 8.6MG TABLET (FP) PO SCH (22:00)
[2020-09-23] MEDS ORDERED: ATORVASTATIN CA 40 MG TABLET (FP) PO SCH (22:00)
[2020-09-23] MEDS ORDERED: SENNOSIDES 8.6MG TABLET (FP) PO PRN (22:00)
[2020-09-23] MEDS ORDERED: DOXYCYCLINE HYCLATE 100 MG VIAL ONE (22:19)
[2020-09-23] MEDS ORDERED: DEXTROSE 5%-WATER 100 ML IVPB ONE (22:19)
[2020-09-23] MEDS: FAMOTIDINE 20 MG/50 ML IVPB 20 MG/50 ML MG IVPB SCH (22:26)
[2020-09-23] MEDS: ENOXAPARIN NA (PORCINE) 100 MG/1 ML DISP.SYRIN SQ SCH (22:26)
[2020-09-24] MEDS: METOPROLOL TARTRATE 5 MG/5 ML VIAL IVPUSH PRN ×5 (01:17→21:00)
[2020-09-24] MEDS: MORPHINE SULFATE 2 MG/ML VIAL IVPUSH PRN ×7 (01:17→21:00)
[2020-09-24] MEDS: LORazepam 2 MG/ML SDV VIAL IVPUSH PRN ×2 (02:20→06:15)
[2020-09-24] MEDS: dilTIAZem HCL 50 MG/10 ML - 10 ML VIAL IVPUSH PRN ×2 (02:25→10:16)
[2020-09-24] MEDS ORDERED: MORPHINE SULFATE 2 MG/ML VIAL IVPUSH ONE ×2 (06:38→06:39)
[2020-09-24] MEDS ORDERED: MORPHINE SULFATE 2 MG/ML VIAL IVPUSH PRN (06:45)
[2020-09-24] MEDS: INSULIN SLIDING SCALE (NOVOLOG) 1 VIAL SQ SCH ×3 (07:22→18:51)
[2020-09-24] MEDS ORDERED: MORPHINE SULFATE/0.9% NACL/PF 100 MG/100 ML BAG IVPB SCH (07:30)
[2020-09-24] MEDS ORDERED: cefTRIAXone SODIUM 1 GM VIAL ONE (09:42)
[2020-09-24] MEDS ORDERED: DEXTROSE 5%-WATER 100 ML IVPB ONE (09:42)
[2020-09-24] MEDS ORDERED: DOXYCYCLINE HYCLATE 100 MG VIAL ONE (09:42)
[2020-09-24] MEDS ORDERED: DEXTROSE 5%-WATER - 50 ML IVPB ONE ×2 (09:42→21:40)
[2020-09-24] MEDS: DOXYCYCLINE INJECTION 100 MG in DEXTROSE 5%-WATER 100 ML IVPB SCH ×2 (09:59→22:30)
[2020-09-24] MEDS: CEFTRIAXONE 1 GM in DEXTROSE 5%-WATER - 50 ML IVPB SCH (09:59)
[2020-09-24] MEDS: DEXAMETHASONE SOD PHOSPHATE 4 MG/1 ML VIAL IVPUSH SCH (09:59)
[2020-09-24] MEDS: FAMOTIDINE 20 MG/50 ML IVPB 20 MG/50 ML MG IVPB SCH ×2 (10:00→22:30)
[2020-09-24] MEDS: ENOXAPARIN NA (PORCINE) 100 MG/1 ML DISP.SYRIN SQ SCH ×2 (10:00→22:00)
[2020-09-24] MEDS ORDERED: DEXMEDETOMIDINE IN 0.9 % NACL 400 MCG/100 ML VIAL IVPB SCH (10:15)
[2020-09-24 11:28] LABS: BASO % 0.1 % (0-2.0); HEMATOCRIT 42.8 % (35.4-49); HEMOGLOBIN 14.3 GM/dL (11.7-16.9); LYMPH % 1.8 % (8-40); MCH 30.3 pg (25.7-33.7); MCHC 33.4 g/dl (32.0-35.9); MEAN CELL VOLUME 90.8 fl (80-96); MONO % 2.5 % (3.8-10.2); NEUT % 95.6 % (42.8-82.8); PLATELET COUNT 184 K/MM3 (134-434); RBC 4.72 M/mm3 (4.00-5.60); RDW 13.7 % (11.9-15.9); WHITE BLOOD COUNT 13.8 K/mm3 (4.0-10.0)
[2020-09-24] MEDS: BENZOCAINE/MENTH/CETYLPYRD CL 1 EACH LOZENGE MM SCH (11:47)
[2020-09-24] MEDS: LACTATED RINGERS SOLUTION 1,000 ML/1,000 ML INFUS.BAG IV SCH (11:47)
[2020-09-24] MEDS ORDERED: AMIODARONE HCL INJECTION 150 MG in DEXTROSE 5%-WATER - 100 ML IVPB ONE ×2 (11:47→12:00)
[2020-09-24] MEDS ORDERED: AMIODARONE HCL INJECTION 450 MG in DEXTROSE 5%-WATER - 241 ML IVPB ONE (11:47)
[2020-09-24 11:52] LABS: CALCIUM 8.3 mg/dL (8.5-10.1)
[2020-09-24 11:53] LABS: MAGNESIUM 3.1 mg/dL (1.8-2.4)
[2020-09-24 11:56] LABS: CREATININE 1.6 mg/dL (0.55-1.3)
[2020-09-24 11:58] LABS: BILIRUBIN,TOTAL 1.2 mg/dL (0.2-1); TOT PROT 6.1 g/dl (6.4-8.2)
[2020-09-24 12:08] LABS: ANISOCYTOSIS 1+; MACROCYTOSIS 0; PLATELET ESTIMATE NORMAL
[2020-09-24] MEDS ORDERED: AMIODARONE IN DEXTROSE,ISO-OSM 360 MG/200 ML BAG IVPB ONE (12:10)
[2020-09-24 12:18] LABS: BLOOD UREA NITROGEN 68.4 mg/dL (7-18)
[2020-09-24] MEDS ORDERED: ACETAMINOPHEN 1000 MG/100 ML VIAL (NON FORMULARY) IVPB ONE ×2 (14:51→21:32)
[2020-09-24] MEDS: AMIODARONE IN DEXTROSE,ISO-OSM 360 MG/200 ML BAG IVPB SCH (19:22)
[2020-09-24] MEDS ORDERED: ACETAMINOPHEN 325 MG TABLET (FP) PO PRN (21:06)
[2020-09-24] MEDS: PIPERACILLIN/TAZOB 3.375 GM 3.375 GM in DEXTROSE 5%-WATER - 50 ML IVPB SCH (21:30)
[2020-09-24] MEDS ORDERED: PIPERACILLIN/TAZOBACTAM 3.375 GM VIAL IVPB ONE (21:40)
[2020-09-24] MEDS: MUPIROCIN 2% TOPICAL OINTMENT FOR DECOLONIZATION NS SCH (22:00)
[2020-09-24] MEDS ORDERED: CHLORHEXIDINE GLUCONATE 4% CLEANSER FOR DECOLONIZATION TP SCH (22:00)
[2020-09-25] MEDS: BENZOCAINE/MENTH/CETYLPYRD CL 1 EACH LOZENGE MM SCH (00:18)
[2020-09-25] MEDS: METOPROLOL TARTRATE 5 MG/5 ML VIAL IVPUSH PRN ×3 (00:24→19:55)
[2020-09-25] MEDS: MORPHINE SULFATE 2 MG/ML VIAL IVPUSH PRN ×8 (00:24→14:46)
[2020-09-25] MEDS: INSULIN SLIDING SCALE (NOVOLOG) 1 VIAL SQ SCH ×5 (01:09→22:11)
[2020-09-25] MEDS ORDERED: DEXTROSE 5%-WATER - 50 ML IVPB ONE ×2 (01:40→08:20)
[2020-09-25] MEDS ORDERED: PIPERACILLIN/TAZOBACTAM 3.375 GM VIAL IVPB ONE ×2 (01:40→08:20)
[2020-09-25] MEDS: DEXTROSE 5%-0.45% SALINE 1,000 ML IV SCH ×2 (01:41→12:30)
[2020-09-25] MEDS: PIPERACILLIN/TAZOB 3.375 GM 3.375 GM in DEXTROSE 5%-WATER - 50 ML IVPB SCH ×3 (01:42→17:22)
[2020-09-25] MEDS: LORazepam 2 MG/ML SDV VIAL IVPUSH PRN ×2 (06:25→08:59)
[2020-09-25] MEDS ORDERED: ALBUTEROL SO4 HFA INHALER IH PRN (08:12)
[2020-09-25 08:16] LABS: BASO % 0.1 % (0-2.0); EOS % 0.1 % (0-4.5); HEMATOCRIT 41.5 % (35.4-49); HEMOGLOBIN 13.9 GM/dL (11.7-16.9); LYMPH % 2.1 % (8-40); MCH 30.7 pg (25.7-33.7); MCHC 33.4 g/dl (32.0-35.9); MEAN CELL VOLUME 91.8 fl (80-96); MEAN PLT VOLUME 10.6 fl (7.5-11.1); MONO % 2.4 % (3.8-10.2); NEUT % 95.3 % (42.8-82.8); PLATELET COUNT 145 K/MM3 (134-434); RBC 4.52 M/mm3 (4.00-5.60); RDW 14.1 % (11.9-15.9); WHITE BLOOD COUNT 13.3 K/mm3 (4.0-10.0)
[2020-09-25] MEDS ORDERED: DEXAMETHASONE SOD PHOSPHATE 10 MG/1 ML VIAL ONE (08:22)
[2020-09-25 08:27] LABS: POTASSIUM 4.1 mmol/L (3.5-5.1)
[2020-09-25 08:30] LABS: ALBUMIN 1.9 g/dl (3.4-5.0); BLOOD UREA NITROGEN 79.4 mg/dL (7-18); CALCIUM 8.1 mg/dL (8.5-10.1); MAGNESIUM 3.4 mg/dL (1.8-2.4)
[2020-09-25 08:33] LABS: CREATININE 2.1 mg/dL (0.55-1.3)
[2020-09-25 08:35] LABS: BILIRUBIN,TOTAL 1.1 mg/dL (0.2-1)
[2020-09-25] MEDS: MUPIROCIN 2% TOPICAL OINTMENT FOR DECOLONIZATION NS SCH ×2 (09:01→21:52)
[2020-09-25] MEDS: ENOXAPARIN NA (PORCINE) 100 MG/1 ML DISP.SYRIN SQ SCH ×2 (09:17→21:51)
[2020-09-25 09:20] LABS: ANISOCYTOSIS 0; MACROCYTOSIS 0; PLATELET ESTIMATE DECREASED
[2020-09-25] MEDS ORDERED: FAMOTIDINE 20 MG/50 ML IVPB 20 MG/50 ML MG IVPB SCH (10:00)
[2020-09-25] MEDS ORDERED: DEXAMETHASONE SOD PHOSPHATE 4 MG/1 ML VIAL IVPUSH SCH (10:00)
[2020-09-25] MEDS: DOXYCYCLINE INJECTION 100 MG in DEXTROSE 5%-WATER 100 ML IVPB SCH ×2 (10:19→21:51)
[2020-09-25] MEDS: ACETAMINOPHEN 1000 MG/100 ML VIAL (NON FORMULARY) IVPB PRN (18:06)
[2020-09-25] MEDS: AMIODARONE IN DEXTROSE,ISO-OSM 360 MG/200 ML BAG IVPB SCH (23:20)
[2020-09-26] MEDS: MORPHINE SULFATE 2 MG/ML VIAL IVPUSH PRN ×2 (00:23→14:59)
[2020-09-26] MEDS: PIPERACILLIN/TAZOB 3.375 GM 3.375 GM in DEXTROSE 5%-WATER - 50 ML IVPB SCH ×2 (01:22→11:18)
[2020-09-26] MEDS: ACETAMINOPHEN 1000 MG/100 ML VIAL (NON FORMULARY) IVPB PRN ×2 (02:24→08:16)
[2020-09-26] MEDS: METOPROLOL TARTRATE 5 MG/5 ML VIAL IVPUSH PRN ×3 (03:00→17:05)
[2020-09-26 04:04] LABS: EPI CELLS >36 /uL (0-25.1); HYALINE CASTS 10 /uL (0-3.1); URINE APPEARANCE CLOUDY; URINE BACTERIA 13 /uL (0-1359); URINE BILIRUBIN NEGATIVE (NEGATIVE); URINE COLOR YELLOW; URINE GLUCOSE (UA) NEGATIVE (NEGATIVE); URINE KETONE NEGATIVE (NEGATIVE); URINE LEUK ESTERASE NEGATIVE (NEGATIVE); URINE NITRITE NEGATIVE (NEGATIVE); URINE PROTEIN 1+ (NEGATIVE); URINE RBC 8 /uL (0-23.9); URINE UROBILINOGEN 0.2 mg/dL (0.2-1.0); URINE WBC 46 /uL (0-25.8)
[2020-09-26 04:31] LABS: URINE CRYSTALS 0-3 /hpf
[2020-09-26] MEDS: INSULIN SLIDING SCALE (NOVOLOG) 1 VIAL SQ SCH ×3 (07:02→16:43)
[2020-09-26] MEDS: LORazepam 2 MG/ML SDV VIAL IVPUSH PRN ×2 (07:40→14:59)
[2020-09-26 08:54] LABS: HEMATOCRIT 41.4 % (35.4-49); HEMOGLOBIN 13.3 GM/dL (11.7-16.9); LYMPH % 2.3 % (8-40); MCH 30.3 pg (25.7-33.7); MCHC 32.2 g/dl (32.0-35.9); MEAN CELL VOLUME 94.3 fl (80-96); MEAN PLT VOLUME 10.9 fl (7.5-11.1); MONO % 3.2 % (3.8-10.2); NEUT % 94.5 % (42.8-82.8); PLATELET COUNT 129 K/MM3 (134-434); RBC 4.39 M/mm3 (4.00-5.60); RDW 14.7 % (11.9-15.9); WHITE BLOOD COUNT 15.7 K/mm3 (4.0-10.0)
[2020-09-26 09:14] LABS: POTASSIUM 4.8 mmol/L (3.5-5.1)
[2020-09-26 09:16] LABS: ALBUMIN 1.9 g/dl (3.4-5.0); BLOOD UREA NITROGEN 90.8 mg/dL (7-18); CALCIUM 7.6 mg/dL (8.5-10.1); MAGNESIUM 3.7 mg/dL (1.8-2.4)
[2020-09-26 09:19] LABS: CREATININE 3.1 mg/dL (0.55-1.3)
[2020-09-26 09:21] LABS: BILIRUBIN,TOTAL 0.6 mg/dL (0.2-1); TOT PROT 5.8 g/dl (6.4-8.2)
[2020-09-26] MEDS ORDERED: PIPERACILLIN/TAZOBACTAM 3.375 GM VIAL IVPB ONE (09:29)
[2020-09-26] MEDS ORDERED: DEXTROSE 5%-WATER - 50 ML IVPB ONE ×2 (09:29→18:54)
[2020-09-26] MEDS ORDERED: LACTATED RINGERS SOLUTION 1,000 ML/1,000 ML INFUS.BAG IV SCH (09:45)
[2020-09-26] MEDS: MUPIROCIN 2% TOPICAL OINTMENT FOR DECOLONIZATION NS SCH (11:17)
[2020-09-26] MEDS: ENOXAPARIN NA (PORCINE) 100 MG/1 ML DISP.SYRIN SQ SCH (11:18)
[2020-09-26] MEDS: DOXYCYCLINE INJECTION 100 MG in DEXTROSE 5%-WATER 100 ML IVPB SCH (11:34)
[2020-09-26] MEDS ORDERED: MEROPENEM 1 GM in DEXTROSE 5%-WATER 100 ML IVPB SCH (12:45)
[2020-09-26 13:02] LABS: ANISOCYTOSIS 0; MACROCYTOSIS 0; PLATELET ESTIMATE DECREASED
[2020-09-26 14:56] VITALS: TEMP 101.4
[2020-09-26] MEDS ORDERED: PIPERACILLIN/TAZOB 2.25 GM 2.25 GM in DEXTROSE 5%-WATER - 50 ML IVPB SCH (18:00)
[2020-09-26] MEDS ORDERED: PIPERACILLIN/TAZOBACTAM 2.25 GM VIAL IVPB ONE (18:54)
[2020-09-26 20:02] VITALS: BP 74/63; PULSE 156
== END 2020-09-26 23:39 | disposition expired | DRG 177 ==
LOC: JER 10:43 → JERBED 13:12 → J4W 22:04 → JICU 09-20 13:31 → J4W 09-22 16:22 → JICU-6 09-24 11:33
PROVIDERS: ADMIT Internal Medicine; ATTEND Internal Medicine Pulmonary Disease
PROC: XW033E5 Introduction of Remdesivir Anti-infective into Peripheral Vein, Percutaneous Approach, New Technology Group 5 (ICD-10-PCS; 2020-09-16)
PROC: XW13325 Transfusion of Convalescent Plasma (Nonautologous) into Peripheral Vein, Percutaneous Approach, New Technology Group 5 (ICD-10-PCS; principal; 2020-09-17)
PROC: 5A09557 Assistance with Respiratory Ventilation, Greater than 96 Consecutive Hours, Continuous Positive Airway Pressure (ICD-10-PCS; 2020-09-19)
PROC: 5A12012 Performance of Cardiac Output, Single, Manual (ICD-10-PCS; 2020-09-26)
DX: U07.1 COVID-19 (principal); J12.82 Pneumonia due to coronavirus disease 2019; J96.01 Acute respiratory failure with hypoxia; E87.2 Acidosis; I50.22 Chronic systolic (congestive) heart failure; N17.9 Acute kidney failure, unspecified; I25.10 Atherosclerotic heart disease of native coronary artery without angina pectoris; E66.9 Obesity, unspecified; Z68.34 Body mass index [BMI] 34.0-34.9, adult; E11.9 Type 2 diabetes mellitus without complications; K21.9 Gastro-esophageal reflux disease without esophagitis; E78.5 Hyperlipidemia, unspecified; G47.33 Obstructive sleep apnea (adult) (pediatric); R79.89 Other specified abnormal findings of blood chemistry; E87.6 Hypokalemia; I11.0 Hypertensive heart disease with heart failure; J84.10 Pulmonary fibrosis, unspecified; I46.9 Cardiac arrest, cause unspecified; Z95.5 Presence of coronary angioplasty implant and graft
CPT/HCPCS: 36415; 36430; 36600; 71045-TC-FY; 80053; 81003; 82248; 82550; 82553; 82728; 82803; 82962; 83036; 83605; 83615; 83735; 83880; 84484; 85025; 85379; 85610; 85730; 86140; 86850; 86900; 86901; 87040; 87086; 87804; 93005; 93010; 94660; 99291; C9399; C9803; J0131; J1100; P9017; U0003